=== PATIENT | female | born 1960 | race African-American/Black ===

== ENCOUNTER → 2016-09-15 | Outpatient (CLI) | payer MEDICARE, MEDICAID ==
--- NOTE | 2016-09-15 17:04 | WOMENS IMAGING REPORT ---
EXAM DESCRIPTION: BILAT SCREENING MAMMO W/CAD COMPLETED DATE/TIME: 09/15/2016 3:21 pm REASON FOR STUDY: ROUTINE SCREENING MAMMO, Z12.31 Z12.31 ENCNTR SCREEN MAMMOGRAM FOR MALIGNANT NEOP LASM OF RONAK COMPARISON: Multiple since 2008 TECHNIQUE: Standard craniocaudal and mediolateral oblique views of each breast recorded using Jarvama l acquisition. LIMITATIONS: None. FINDINGS: Findings present which are benign by mammographic criteria. No suspicious masses, calcifi cations or architectural distortion. Read with the assistance of CAD. .[facility] - R2 Cenova Version 1.3 .[facility] - R2 Cenova Version 1.3 .[facility] - R2 Cenova Version 2.4 .[facility] - R2 Cenova Version 2.4 .[facility] - R2 Supply Chain Vice President Version 9.2 Benign mammographic findings may include one or more of the following: Smooth masses, popcorn/rim/co arse calcifications, asymmetries, post-procedure changes, and lesions with long-standing stability. BREAST DENSITY: b. There are scattered areas of fibroglandular density. BIRAD: 2 BENIGN FINDING(S) RECOMMENDATION: ROUTINE SCREENING COMMENT: PATIENT NOTIFIED BY LETTER. The [employer] recommends an annual screening mammogram for women aged 40 years or over. Each patient will receive a reminder prior to the anniversary date of her mammogram. The [employer] (ACR) has developed recommendations for screening MRI of the breast s in certain patient populations, to be used in conjunction with mammography. Breast MRI surveillanc e may be appropriate for women with more than 20% lifetime risk of developing breast cancer as deter mined by genetic testing, significant family history of the disease, or history of mantle radiation f or Hodgkins Disease. ACR Practice Guidelines 2008. TECHNICAL DOCUMENTATION: FINDING NUMBER: (1) ASSESSMENT: (1) JOB ID: [id number] [employer]- All Rights Reserved
== END ==
LOC: WI 14:58
PROVIDERS: ATTEND Obstetrics & Gynecology Gynecology
DX: Z12.31 Encounter for screening mammogram for malignant neoplasm of breast (principal)
CPT/HCPCS: 77067; G0202

== ENCOUNTER → 2016-12-02 | Outpatient (CLI) | payer MEDICARE, MEDICAID ==
[~2016-12-02] MED LIST: ALBUTEROL SULFATE 0.083% NEB 2.5 MG/3 ML AMPUL NEB ONE
--- NOTE | 2016-12-09 13:50 | Pulmonary Function Test ---
Pulmonary Function Test Date of Procedure:: 12/02/16 INDICATION:: Dyspnea Referring Provider: Jewel Bearing Driller: Britney Braden MONTESSORI TEACHER - Report Spirometry: FVC 2.40 L 77% postbronchodilator therapy 2.38 L 76% FEV1 1.90 L 75% postbronchodilator therapy 1.93 L 76% FEV1/FVC % 79 postbronchodilator therapy 81 predicted 83 Lung Volume: Total lung capacity 3.25 L 66% Vital capacity 2.40 L 77% Inspiratory capacity 1.39 FRC N2 1.87 86% ERV 0.48 RV 0.8 5 47% RV/TLC % 26 predicted 36 Diffusion Capactity: DLCO 15.4 60% DLCO/VA 5.07 126% Impression: No evidence for obstructive ventilatory lionel defect there is strong evidence for small airways disease. With limited response to bronchodilator therapy. Mild restrictive ventilatory defect no hyperinflation no air trapping moderate decrease in diffusion capacity.
== END ==
LOC: RT 10:19
PROVIDERS: ATTEND Internal Medicine Pulmonary Disease
DX: J45.909 Unspecified asthma, uncomplicated (principal)
CPT/HCPCS: 94729; 94727; 94060; A9270

== ENCOUNTER → 2017-09-10 | Day surgery (SDC) | payer MEDICARE, MEDICAID ==
--- NOTE | 2017-09-10 15:06 | RADIOLOGY REPORT (SQ) ---
EXAM DESCRIPTION: FLUORO/NEEDLE PLACEMENT; ARTHRO ANKLE INJECTION COMPLETED DATE/TIME: 09/10/2017 2:40 pm REASON FOR STUDY: IMPINGEMENT SYNDROME OF ANKLE M21.42 FLAT FOOT PES PLANUS (ACQUIRED), LEFT FOOT COMPARISON: None. FLUOROSCOPY TIME: 1 minutes. 3 Images saved to PACS. LIMITATIONS: None. PROCEDURE: Procedure, risks, benefits and alternatives explained to patient who then gave written co nsent. The left ankle was marked and a time out was called for correct marking verification. Entry site marked using fluoroscopic guidance. Ankle prepped and draped using sterile technique. Local an esthesia achieved using 1% lidocaine injection. Hypodermic needle introduced into the joint space un rodrigo direct fluoroscopic visualization. Non-ionic contrast instilled to confirm intra-articular posit ion. Additional dilute non-ionic contrast instilled. Needle removed and entry site covered with avani rile bandage. No immediate complications noted. TECHNIQUE: Digital images acquired during fluoroscopy and stored on PACS. Patient immediately take n to the CT suite for additional imaging. INJECTION LOCATION: Left ankle. CONTRAST TYPE AND AMOUNT: 4 mL Isovue saline mixture. IMPRESSION: SUCCESSFUL NEEDLE PLACEMENT AND INJECTION FOR LEFT ANKLE CT ARTHROGRAM. COMMENT: Quality ID [id number]: Final reports for procedures using fluoroscopy that document radiation exp osure indices, or exposure time and number of fluorographic images (if radiation exposure indices are not available) TECHNICAL DOCUMENTATION: JOB ID: [id number] [employer]- All Rights Reserved
--- NOTE | 2017-09-12 14:41 | RADIOLOGY REPORT (SQ) ---
EXAM DESCRIPTION: CT LEFT LOWER EXTREMITY WITH COMPLETED DATE/TIME: 09/10/2017 2:53 pm REASON FOR STUDY: FLATFOOT PESPLANUS LEFT FOOT (M21.42) M21.42 FLAT FOOT PES PLANUS (ACQUIRED), LEF T FOOT COMPARISON: None. TECHNIQUE: Post arthrographic axial imaging performed through the left ankle with reformatted traylor l and sagittal imaging windowed for bone and soft tissues. Images saved to PACS. 3D IMAGING: Were 3D images as MIP, SSD, or volume rendering performed at the work station? Yes All CT scanners at this facility use dose modulation, iterative reconstruction, and/or weight based d osing when appropriate to reduce radiation dose to as low as reasonably achievable (ALARA). [facility]: Dose Right [facility]: CareDose [facility]: Dose Right [facility]: Teradose 4D [facility]: Smart Technologies LIMITATIONS: None. RADIATION DOSE: CT Rad equipment meets quality standard of care and radiation dose reduction techniq ues were employed. CTDIvol: 4.6 mGy. DLP: 113 mGy-cm. mGy. FINDINGS: SOFT TISSUES: No obvious swelling or foreign body. Adequate distention of the ankle joint . No loose bodies in the joint. No gross suggestion of ligament injury or tendon disruption allowin g for suboptimal evaluation of the structures with CT. BONES: Grossly normal bone density. No fracture, suspicious bone lesion or erosions. No large subch ondral cysts or bulky osteophytes. The mortise looks relatively maintained. No talar dome lesion. No coalition evident. Generally maintained hindfoot, midfoot and tarsometatarsal articulations. MINERALIZATION: Normal. OTHER: No other significant finding. IMPRESSION: 1. Relatively unremarkable CT arthrogram of the left ankle. Joint spaces look maintaine d throughout. No significant osteophytes. No erosions present. No evidence of coalition or ankylos is. TECHNICAL DOCUMENTATION: JOB ID: [id number] Quality ID # [id number]: Final reports with documentation of one or more dose reduction techniques (e.g., Au tomated exposure control, adjustment of the mA and/or kV according to patient size, use of iterative reconstruction technique) 2010 [employer]- All Rights Reserved
== END ==
LOC: RAD 13:00
PROVIDERS: ATTEND Orthopaedic Surgery
PROC: BQ0 Imaging, Non-Axial Lower Bones, Plain Radiography (ICD-10-PCS; principal; 2017-09-10)
DX: M21.42 Flat foot [pes planus] (acquired), left foot (principal); M77.52 Other enthesopathy of left foot and ankle
CPT/HCPCS: 27648; 77002

== ENCOUNTER 2017-11-03 11:10 | Emergency (ER) | payer OTHER, MEDICARE, MEDICAID ==
[2017-11-03] MEDS ORDERED: DEXAMETHASONE SOD PHOS INJ 10 MG/1 ML VIAL IM ONE (11:55)
[2017-11-03] MEDS ORDERED: KETOROLAC TROMETHAMINE 60 MG/2 ML SDV IM ONE (11:55)
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
--- NOTE | 2017-11-03 12:41 | RADIOLOGY REPORT (SQ) ---
EXAM DESCRIPTION: L SPINE WHOLE COMPLETED DATE/TIME: 11/03/2017 12:19 pm REASON FOR STUDY: low back pain COMPARISON: May 2011 NUMBER OF VIEWS: Five views including obliques. TECHNIQUE: AP, lateral, oblique, and sacral radiographic images acquired of the lumbar spine. LIMITATIONS: None. FINDINGS: MINERALIZATION: Normal. SEGMENTATION: Normal. No transitional anatomy. ALIGNMENT: There is minimal anterolisthesis of L 4 in relation to L5. VERTEBRAE: Maintained height. No fracture or worrisome bone lesion. DISCS: Preserved height. No significant osteophytes or end plate irregularity. POSTERIOR ELEMENTS: Pedicles and facets are intact. No pars defect or posterior arch defects. HARDWARE: Electrode related to a stimulator device is again identified overlying the left sacrum. PARASPINAL SOFT TISSUES: Normal. PELVIS: Intact as visualized. No fractures or worrisome bone lesions. SI joints intact. OTHER: No other significant finding. IMPRESSION: No significant vertebral compression or disc space reduction is seen. There is minimal anterolisthesis of L 4 in relation L 5. Other findings as noted above TECHNICAL DOCUMENTATION: JOB ID: [id number] [employer]- All Rights Reserved Reading location - IP/workstation name: [email or web address]
[2017-11-03 13:06] VITALS: BP 144/96
== END 2017-11-03 13:06 | disposition home or self-care (01) ==
LOC: ER 11:10
DX: G89.29 Other chronic pain (principal); M54.42 Lumbago with sciatica, left side; Z79.891 Long term (current) use of opiate analgesic; Z79.899 Other long term (current) drug therapy; Z96.89 Presence of other specified functional implants; I10 Essential (primary) hypertension; J45.909 Unspecified asthma, uncomplicated; Z88.2 Allergy status to sulfonamides; Z87.891 Personal history of nicotine dependence; Z85.118 Personal history of other malignant neoplasm of bronchus and lung
CPT/HCPCS: 99283; 96372; 72110; J1885; J1100

== ENCOUNTER → 2018-02-18 | Outpatient (CLI) | payer MEDICARE, MEDICAID ==
--- NOTE | 2018-02-21 09:43 | WOMENS IMAGING REPORT ---
EXAM DESCRIPTION: 3D SCREENING MAMMO BILAT COMPLETED DATE/TIME: 02/18/2018 10:33 am REASON FOR STUDY: SCREENING MAMMO Z12.31 ENCNTR SCREEN MAMMOGRAM FOR MALIGNANT NEOPLASM OF RONAK COMPARISON: Multiple since 2008 TECHNIQUE: Standard craniocaudal and mediolateral oblique views of each breast recorded using digita l acquisition and breast tomosynthesis. LIMITATIONS: None. FINDINGS: No masses, calcifications or architectural distortion. No areas of suspicion. Read with the assistance of CAD. .[facility] - R2 Cenova Version 1.3 .[facility] - R2 Cenova Version 1.3 .[facility] - R2 Cenova Version 2.4 .[facility] [place] [facility] - R2 Cenova Version 2.4 .[facility] - R2 Community Health Nurse Staff Version 9.2 IMPRESSION: NORMAL MAMMOGRAM. BIRADS 1. BREAST DENSITY: b. There are scattered areas of fibroglandular density. BIRAD: 1 NEGATIVE RECOMMENDATION: ROUTINE SCREENING Please continue yearly bilateral screening tomosynthesis in February 2019 COMMENT: The patient has been notified of the results by letter per MQSA requirements. Additional no tification policies are in place for contacting patient with suspicious or incomplete findings. Quality ID #[id number]: The [employer] recommends an annual screening mammogram for women aged 40 years or over. This facility utilizes a reminder system to ensure that all patients receive reminder letters, and/or direct phone calls for appointments. This includes reminders for routine scr eening mammograms, diagnostic mammograms, or other Breast Imaging Interventions when appropriate. Th is patient will be placed in the appropriate reminder system. The [employer] (ACR) has developed recommendations for screening MRI of the breast s in certain patient populations, to be used in conjunction with mammography. Breast MRI surveillanc e may be appropriate for women with more than 20% lifetime risk of developing breast cancer as deter mined by genetic testing, significant family history of the disease, or history of mantle radiation f or Hodgkins Disease. ACR Practice Guidelines 2008. DBT Technology DBT is a type of tomographic mammography. With conventional mammography, overlapping breast tissue ma y make lesions difficult to detect, even with good compression. DBT uses an x-ray tube that rotates a round the breast, taking images at different angles. These images are then combined to create thin sl ices of the breast that the radiologist can view as a 3D reconstruction. The [employer] unit can perform full-field digital mammograms (2D imaging); or DBT (3D imaging); or both, in a combination mode that quickly performs both the mammogram and the tomosynthesis scan while the breast is still compressed. PQRS 6045F: Fluoroscopic imaging is not utilized for breast tomosynthesis. TECHNICAL DOCUMENTATION: FINDING NUMBER: (1) ASSESSMENT: (1) JOB ID: [id number] [employer]- All Rights Reserved Reading location - IP/workstation name: [email or web address]
== END ==
LOC: WI 10:16
PROVIDERS: ATTEND Obstetrics & Gynecology Gynecology
DX: Z12.31 Encounter for screening mammogram for malignant neoplasm of breast (principal)
CPT/HCPCS: 77063; 77067

== ENCOUNTER 2018-05-30 10:18 | Emergency (ER) | payer MEDICARE, MEDICAID ==
[2018-05-30] MEDS ORDERED: ASPIRIN 81 MG TABLET, CHEWABLE PO ONE (10:44)
--- NOTE | 2018-05-30 10:48 | ER Document Report ---
ED Cardiac - General Chief Complaint: Chest Pain Stated Complaint: CHEST PAIN/JAW PAIN Time Seen by Provider: 05/30/18 10:38 Mode of Arrival: Ambulatory Information source: Patient Notes: 57-year-old female presents emergency department with complaints of chest pain. Patient states that at 8 PM last night when she was changing her clothes she began having pain located in the left chest radiating into the center of the chest. She describes the pain as a sharp, dull, pressure sensation. She denies any exacerbating factors. Patient states that initially she took a muscle relaxer and this helped a little with her symptoms. Patient states that the pain has been intermittent since last night. She has not taken any aspirin. Patient denies a history of coronary artery disease but does have hypertension, hyperlipidemia, family history of coronary artery disease. Patient denies history of smoking. I have greeted and performed a rapid initial assessment of this patient. A comprehensive ED assessment and evaluation of the patient, analysis of test results and completion of the medical decision making process will be conducted by additional ED providers. PHYSICAL EXAMINATION: GENERAL: Well-appearing, well-nourished and in no acute distress. HEAD: Atraumatic, normocephalic. EYES: Pupils equal round extraocular movements intact, conjunctiva are normal. ENT: Nares patent NECK: Normal range of motion LUNGS: No respiratory distress Musculoskeletal: Normal range of motion NEUROLOGICAL: Normal speech, normal gait. PSYCH: Normal mood, normal affect. SKIN: Warm, Dry, normal turgor, no rashes or lesions noted. TRAVEL OUTSIDE OF THE [place] IN LAST 30 DAYS: No - Related Data Allergies/Adverse Reactions: Sulfa (Sulfonamide Antibiotics) Allergy (Verified 05/30/18 10:19) Past Medical History - Social History Smoking Status: Former Smoker Family History: CAD - Past Medical History Cardiac Medical History: Reports: Hx DVT, Hx Hypertension Denies: Hx Heart Attack Pulmonary Medical History: Reports: Hx Asthma Denies: Hx Bronchitis, Hx COPD, Hx Pneumonia Neurological Medical History: Denies: Hx Seizures Renal/ Medical History: Denies: Hx Peritoneal Dialysis Malignancy Medical History: Reports: Hx Lung Cancer GI Medical History: Reports: Hx Gastroesophageal Reflux Disease, Hx Hiatal Hernia Musculoskeletal Medical History: Reports Hx Arthritis, Reports Hx Multiple Sclerosis, Reports Hx Musculoskeletal Deformity Past Surgical History: Reports: Hx Section, Hx Cholecystectomy, Hx Orthopedic Surgery - L wrist, Other - Left upper lobe removed lung, lung cancer. Denies: Hx Hysterectomy - Immunizations Hx Diphtheria, Pertussis, Tetanus Vaccination: Yes Physical Exam - Vital signs Vitals: Temp Pulse Resp BP Pulse Ox 98.2 F 63 18 160/95 H 100 05/30/18 10:05/30/18 10:29 05/30/18 10:29 05/30/18 10:29 05/30/18 10:29 Course - Vital Signs Vital signs: Temp Pulse Resp BP Pulse Ox 98.2 F 63 18 160/95 H 100 05/30/18 10:29 05/30/18 10:29 05/30/18 10:29 05/30/18 10:29 05/30/18 10:29 Discharge - Discharge Referrals: PAM DOWNEY MD [Primary Care Provider] - Follow up as needed
[2018-05-30 11:16] LABS: ABSOLUTE EOSINOPHILS # (AUTO) 0.2 10^3/uL (0.0-0.6); ABSOLUTE LYMPHOCYTES (AUTO) 2.2 10^3/uL (0.5-4.7); ABSOLUTE MONOCYTES (AUTO) 0.6 10^3/uL (0.1-1.4); ABSOLUTE NEUT (AUTO) 4.3 10^3/uL (1.7-8.2); BASOPHILS % (AUTO) 0.2 % (0-2); EOSINOPHILS % (AUTO) 2.1 % (0-6); HEMATOCRIT 40.5 % (36.0-47.0); HEMOGLOBIN 13.4 g/dL (12.0-15.5); LYMPHOCYTES % (AUTO) 30.6 % (13-45); MEAN CORPUSCULAR HEMOGLOBIN 28.2 pg (27.0-33.4); MEAN CORPUSCULAR HGB CONC 33.1 g/dL (32.0-36.0); MEAN CORPUSCULAR VOLUME 85 fl (80-97); MONOCYTES % (AUTO) 8.2 % (3-13); PLATELET COUNT 278 10^3/uL (150-450); RED BLOOD COUNT 4.75 10^6/uL (3.72-5.28); RED CELL DISTRIBUTION WIDTH 14.6 % (11.5-14.0); SEGMENTED NEUTROPHILS % (AUTO) 58.9 % (42-78); TOTAL CELLS COUNTED % (AUTO) 100 %; WHITE BLOOD COUNT 7.3 10^3/uL (4.0-10.5)
--- NOTE | 2018-05-30 11:21 | ER Document Report ---
ED Cardiac - General Chief Complaint: Chest Pain Stated Complaint: CHEST PAIN/JAW PAIN Time Seen by Provider: 05/30/18 10:38 Mode of Arrival: Ambulatory Notes: 57-year-old female presents to the ER complaining of chest discomfort. The patient describes the chest discomfort as heaviness rating to her left jaw and left arm. She has had this from time to time and has seen Dr. Roberts her brim edge trimmer in the past. A stress test a year ago. She described this as heaviness with radiation she rates as moderate nothing really made it better or worse. She denies any fever chills cough or sore throat positive shortness of breath denies nausea or diaphoresis. Denies any calf pain or leg swelling denies abdominal pain. Denies nausea vomiting diarrhea. TRAVEL OUTSIDE OF THE [place] IN LAST 30 DAYS: No - Related Data Allergies/Adverse Reactions: Sulfa (Sulfonamide Antibiotics) Allergy (Verified 05/30/18 10:19) Past Medical History - General Information source: Patient - Social History Smoking Status: Former Smoker Chew tobacco use (# tins/day): No Frequency of alcohol use: None Drug Abuse: None Family History: CAD Patient has suicidal ideation: No Patient has homicidal ideation: No - Past Medical History Cardiac Medical History: Reports: Hx DVT, Hx Hypercholesterolemia, Hx Hypertension Denies: Hx Heart Attack Pulmonary Medical History: Reports: Hx Asthma Denies: Hx Bronchitis, Hx COPD, Hx Pneumonia Neurological Medical History: Denies: Hx Seizures Renal/ Medical History: Denies: Hx Peritoneal Dialysis Malignancy Medical History: Reports: Hx Lung Cancer GI Medical History: Reports: Hx Gastroesophageal Reflux Disease, Hx Hiatal Hernia Musculoskeletal Medical History: Reports Hx Arthritis, Reports Hx Multiple Sclerosis, Reports Hx Musculoskeletal Deformity Past Surgical History: Reports: Hx Section, Hx Cholecystectomy, Hx Orthopedic Surgery - L wrist, Other - Left upper lobe removed lung, lung cancer. Denies: Hx Hysterectomy - Immunizations Hx Diphtheria, Pertussis, Tetanus Vaccination: Yes Review of Systems - Review of Systems Cardiovascular: Chest pain, Dyspnea. denies: Syncope, Dizziness Respiratory: denies: Cough, Hurts to breathe Genitourinary: denies: Dysuria Neurological/Psychological: denies: Headaches -: Yes All other systems reviewed and negative Physical Exam - Vital signs Vitals: Temp Pulse Resp BP Pulse Ox 98.2 F 63 18 160/95 H 100 05/30/18 10:29 10/15/18 10:29 05/30/18 10:29 05/30/18 10:29 05/30/18 10:29 - Notes Notes: GENERAL_APPEARANCE: well_nourished, alert, cooperative VITALS: reviewed, see vital signs table. HEAD: no_swelling\tenderness on the head. EYES: PERRL, EOMI, conjunctiva_clear. NOSE: no_nasal_discharge. MOUTH: (-)decreased moisture. THROAT: no_tonsilar_inflammation, no_airway_obstruction. no_lymphadenopathy NECK: supple, no_neck_tenderness, (-)thyromegaly. BACK: no_back_tenderness. CHEST_WALL: no_chest_tenderness. LUNGS: no_wheezing, no_rales, no_rhonchi, (-)accessory muscle use, good air exchange bilateral. HEART: normal_rate, normal_rhythm, normal_S1, normal_S2, (-)S3, (-)S4, no_ murmur, no_rub. ABDOMEN: normal_BS, soft, no_abd_tenderness, (-)guarding, (-)rebound, no_ organomegaly, no_abd_masses. EXTREMITIES: good pulses in all_extremities, no_swelling\tenderness in the extremities, no_edema. SKIN: warm, dry, good_color, no_rash. MENTAL_STATUS: speech_clear, oriented_X_3, normal_affect, responds_ appropriately to questions. NEURO: Neg Motor or Sensory Deficits on exam, CN 2-12 intact, DTR 2+ symmetric x 4, No cerbellar signs Course - Re-evaluation Re-evalutation: 05/30/18 11:20 57-year-old female presents to the ER with chest discomfort. Start a cardiac workup and contact her brim edge trimmer. 05/30/18 14:14 EKG and enzymes so far been negative. I spoke with her brim edge trimmer Dr. Roberts. We will get a second troponin at the 4-hour kellie if negative the patient can follow-up with him tomorrow in the office. 05/30/18 15:47 Repeat troponin was also negative at 4 hours. There is no EKG changes. I spoke with the patient and I explained the limitations of our testing however we are reassured by her findings here today she is comfortable with seeing Dr. Roberts tomorrow. She has felt much better after the GI cocktail. I spoke with her about an acids. Again if her discomfort gets worse or persists and she feels any concern whatsoever she should return to the ER and allow us to reevaluate her otherwise follow-up with Dr. Roberts tomorrow - Vital Signs Vital signs: Temp Pulse Resp BP Pulse Ox 98.2 F 63 18 160/95 H 100 05/30/18 10:29 05/30/18 10:29 05/30/18 10:29 05/30/18 10:29 05/30/18 10:29 - Laboratory Result Diagrams: 05/30/18 11:00 05/30/18 11:00 Laboratory results interpreted by me: 05/30/18 11:00 RDW 14.6 H - Diagnostic Test Radiology reviewed: Reports reviewed Radiology results interpreted by me: 05/30/18 15:47 Chest X-Ray 05/30/18 10:45 IMPRESSION: 1. Post surgical changes left upper lung. No acute findings. - EKG Interpretation by Me EKG shows normal: Sinus rhythm Rate: Normal - 59 Rhythm: NSR When compared to previous EKG there are: No significant change Discharge - Discharge Clinical Impression: Chest discomfort Condition: Good Disposition: HOME, SELF-CARE Instructions: Chest Pain of Unclear Cause ([facility]) Additional Instructions: Please see Dr. Roberts tomorrow --- as we have discussed no test is 100%. If you feel as if you are getting worse or things are not improving or not having a good direction tonight return to the ER immediately otherwise follow-up with Dr. Roberts Referrals: PAM DOWNEY MD [EMERITUS] - Follow up as needed
--- NOTE | 2018-05-30 11:25 | RADIOLOGY REPORT (SQ) ---
EXAM DESCRIPTION: CHEST SINGLE VIEW COMPLETED DATE/TIME: 05/30/2018 11:10 am REASON FOR STUDY: chest pain COMPARISON: 04/06/2016 EXAM PARAMETERS: NUMBER OF VIEWS: One view. TECHNIQUE: Single frontal radiographic view of the chest acquired. RADIATION DOSE: NA LIMITATIONS: None. FINDINGS: LUNGS AND PLEURA: Post surgical changes left upper lung. No acute pulmonary consolidatio n. No pneumothorax or pleural effusion. MEDIASTINUM AND HILAR STRUCTURES: No masses. Contour normal. HEART AND VASCULAR STRUCTURES: Heart normal in size. Normal vasculature. BONES: No acute findings. HARDWARE: None in the chest. OTHER: No other significant finding. IMPRESSION: 1. Post surgical changes left upper lung. No acute findings. TECHNICAL DOCUMENTATION: JOB ID: [id number] [employer]- All Rights Reserved Reading location - IP/workstation name: [email or web address]
[2018-05-30 11:43] LABS: ALANINE AMINOTRANSFERASE 19 U/L (9-52); ALBUMIN 4.1 g/dL (3.5-5.0); ALKALINE PHOSPHATASE 100 U/L (38-126); ANION GAP 10 (5-19); ASPARTATE AMINO TRANSFERASE 27 U/L (14-36); BILIRUBIN,DIRECT 0.3 mg/dL (0.0-0.4); BILIRUBIN,TOTAL 0.8 mg/dL (0.2-1.3); BLOOD UREA NITROGEN 13 mg/dL (7-20); CALCIUM 9.5 mg/dL (8.4-10.2); CARBON DIOXIDE 28 mmol/L (22-30); CHLORIDE 104 mmol/L (98-107); CREATINE KINASE 66 U/L (30-135); GLUCOSE 98 mg/dL (75-110); POTASSIUM 4.2 mmol/L (3.6-5.0); SODIUM 141.5 mmol/L (137-145); TOTAL PROTEIN 7.5 g/dL (6.3-8.2)
[2018-05-30 11:55] LABS: CREATINE KINASE MB 0.98 ng/mL (<4.55); TROPONIN I < 0.012 ng/mL
--- NOTE | 2018-05-30 13:34 | EKG REPORT ---
SEVERITY:- BORDERLINE ECG - SINUS RHYTHM PROBABLE LEFT ATRIAL ABNORMALITY BORDERLINE T WAVE ABNORMALITIES : Confirmed by: Dewey Quintero MD 30-May-2018 13:34:04
[2018-05-30] MEDS ORDERED: MAG HYDROX/AL HYDROX/SIMETH SUSP 30 ML UDCUP PO ONE (14:12)
[2018-05-30] MEDS ORDERED: METOCLOPRAMIDE HCL ORAL SOLN 10 MG/10 ML UDCUP PO ONE (14:12)
[2018-05-30] MEDS ORDERED: LIDOCAINE 2% VISCOUS SOLN 20 ML UDCUP PO ONE (14:12)
[2018-05-30 16:27] VITALS: BP 136/82
== END 2018-05-30 16:27 | disposition home or self-care (01) ==
LOC: ER 10:18
DX: R07.9 Chest pain, unspecified (principal); R68.84 Jaw pain; E78.00 Pure hypercholesterolemia, unspecified; I10 Essential (primary) hypertension; Z88.2 Allergy status to sulfonamides; Z87.891 Personal history of nicotine dependence; Z86.718 Personal history of other venous thrombosis and embolism; Z90.49 Acquired absence of other specified parts of digestive tract
CPT/HCPCS: 93005; 99285; 36415; 82553; 82550; 85025; 80053; 84484; 71045; 93010; A9270 ×2; J3490

== ENCOUNTER 2018-12-15 05:05 | Emergency (ER) | payer MEDICARE, MEDICAID ==
[2018-12-15 05:17] VITALS: BP 168/92
[2018-12-15] MEDS ORDERED: DEXAMETHASONE SOD PHOS INJ 10 MG/1 ML VIAL IM ONE (06:22)
[2018-12-15] MEDS ORDERED: LIDOCAINE 5% (700 MG) TRANSDERMAL ADH..PATCH TP ONE (06:23)
--- NOTE | 2018-12-15 06:24 | ER Document Report ---
HPI - HPI Time Seen by Provider: 12/15/18 05:44 Pain Level: 5 Context: Patient is a 58-year-old obese patient who presents the emergency department with a chief complaint of lower back and left hip pain. She states that her symptoms started 4 to 5 days ago. She states that she always has lower back pain, but now has had new hip pain. States that her low back pain feels like it normally does. She is on Neurontin, oxycodone, and baclofen for her back pain. Her last dose of oxycodone and baclofen was at midnight tonight. She also is on Nexium, Lasix, and Coreg. She denies any numbness, tingling, IV drug abuse, loss of bladder or bladder function, or any other symptoms. Denies sciatica symptoms. She denies any dysuria. - CONSTITUTIONAL Constitutional: DENIES: Fever - EENT EENT: DENIES: Sore Throat, Ear Pain - NEURO Neurology: DENIES: Headache - CARDIOVASCULAR Cardiovascular: DENIES: Chest pain - RESPIRATORY Respiratory: DENIES: Trouble Breathing, Coughing - GASTROINTESTINAL Gastrointestinal: DENIES: Abdominal Pain - URINARY Urinary: DENIES: Dysuria - REPRODUCTIVE Reproductive: DENIES: : - MUSCULOSKELETAL Musculoskeletal: REPORTS: Extremity pain - Left hip, Back Pain - DERM Skin Color: Normal Skin Problems: None Past Medical History - Social History Smoking Status: Never Smoker Chew tobacco use (# tins/day): No Frequency of alcohol use: None Drug Abuse: None Family History: CAD Patient has suicidal ideation: No Patient has homicidal ideation: No - Past Medical History Cardiac Medical History: Reports: Hx DVT, Hx Hypercholesterolemia, Hx Hypertension Denies: Hx Heart Attack Pulmonary Medical History: Reports: Hx Asthma Denies: Hx Bronchitis, Hx COPD, Hx Pneumonia Neurological Medical History: Denies: Hx Seizures Renal/ Medical History: Denies: Hx Peritoneal Dialysis Malignancy Medical History: Reports: Hx Lung Cancer GI Medical History: Reports: Hx Gastroesophageal Reflux Disease, Hx Hiatal Hernia Musculoskeletal Medical History: Reports Hx Arthritis, Reports Hx Multiple Sclerosis, Reports Hx Musculoskeletal Deformity Past Surgical History: Reports: Hx Section, Hx Cholecystectomy, Hx Orthopedic Surgery - L wrist, Other - Left upper lobe removed lung, lung cancer. Denies: Hx Hysterectomy - Immunizations Hx Diphtheria, Pertussis, Tetanus Vaccination: Yes Vertical Provider Document - CONSTITUTIONAL Agree With Documented VS: Yes Exam Limitations: No Limitations General Appearance: No Apparent Distress - INFECTION CONTROL TRAVEL OUTSIDE OF THE [place] IN LAST 30 DAYS: No - HEENT HEENT: Atraumatic, Normocephalic - NECK Neck: Normal Inspection - RESPIRATORY Respiratory: Breath Sounds Normal, No Respiratory Distress - CARDIOVASCULAR Cardiovascular: Regular Rate, Regular Rhythm Pulses: Normal: Radial, Posterior tibial, Dorsalis pedis - GI/ABDOMEN Gastrointestinal: Abdomen Soft - BACK Back: Normal Inspection. negative: CVA Tenderness-Right, CVA Tenderness-Left - MUSCULOSKELETAL/EXTREMETIES Musculoskeletal/Extremeties: FROM - NEURO Level of Consciousness: Awake, Alert, Appropriate Motor/Sensory: No Motor Deficit, No Sensory Deficit Deep Tendon Reflexes: 2+ - DERM Integumentary: Warm, Dry, No Rash Course - Re-evaluation Re-evalutation: 12/15/18 06:24 Differential diagnosis for back pain includes muscle spasm, muscle strain, slipped disc cauda equina syndrome, vertebral fracture, vertebral tumor, epidural abscess, pyelonephritis, or AAA. Based on history and exam, the most likely etiology of the patient's back pain is chronic. Emergent MRI is not indicated at this time because the patient does not have new weakness, or cauda equina syndrome. Patient does not have bladder or bowel dysfunction. Patient does not have history of IV drug use, therefore, I do not suspect an epidural abscess. Patient does not have recent weight loss or night sweats. She does have a past medical history of cancer, but it was lung cancer and she is in remission. She will be given a dose of Decadron here in the emergency department. Since the patient is currently on oxycodone, baclofen, and Neurontin, I am hesitant to give her any narcotic medications, as this may be detrimental to her health. She will also receive lidocaine patches. She is in agreement with this plan. Verbal discharge instructions were given to the patient. They verbalized understanding. They are stable for discharge. - Vital Signs Vital signs: Temp Pulse Resp BP Pulse Ox 97.8 F 69 20 168/92 H 99 12/15/18 05:10 12/15/18 05:10 12/15/18 05:10 12/15/18 05:10 12/15/18 05:10 Discharge - Discharge Clinical Impression: Left hip pain Back pain Qualifiers: Back pain location: low back pain Chronicity: chronic Back pain laterality: bilateral Sciatica presence: without sciatica Qualified Code(s): M54.5 - Low back pain Condition: Stable Disposition: HOME, SELF-CARE Additional Instructions: You were seen today in the emergency department for back pain and left hip pain. You received a steroid shot here in the emergency department. You have also been prescribed lidocaine patches. Use the patches as directed. If you cannot buy the patches, you may also buy [id number] Aspercreme with lidocaine and apply to the area per box instructions. Please follow-up with your primary care provider regards to this visit. If you develop a fever greater than 100.4 F, lose bowel or bladder function, are unable to walk, or have any symptoms that are worrisome to you, please return to the emergency department. Prescriptions: Lidocaine [Lidoderm 5% (700 mg) Transdermal Patch] 1 patch TP DAILY PRN #20 adh..patch PRN Reason: Referrals: RICARDO MONAHAN PA-C [Primary Care Provider] - Follow up in 3-5 days
== END 2018-12-15 06:41 | disposition home or self-care (01) ==
LOC: ER 05:05
DX: M25.552 Pain in left hip (principal); M54.5 Low back pain; Z79.891 Long term (current) use of opiate analgesic; Z79.899 Other long term (current) drug therapy; K21.9 Gastro-esophageal reflux disease without esophagitis; I10 Essential (primary) hypertension; J45.909 Unspecified asthma, uncomplicated; Z85.118 Personal history of other malignant neoplasm of bronchus and lung
CPT/HCPCS: 99283; 96372; J1100

== ENCOUNTER 2020-03-11 15:49 | Emergency (ER) | payer MEDICARE, MEDICAID ==
--- NOTE | 2020-03-11 17:14 | ER Document Report ---
ED Medical Screen (RME) - General Stated Complaint: POSSIBLE BLOOD CLOT IN LEG Time Seen by Provider: 03/11/20 17:09 Primary Care Provider: RICARDO MONAHAN PA-C [Primary Care Provider] - Follow up as needed Notes: Patient is a 59-year-old female who presents to the emergency department with a chief complaint of left lower extremity swelling and pain. Patient states that her symptoms started a week and a half ago. Patient states that she saw her primary care provider and was referred to the emergency department to evaluate for a blood clot. Patient denies any smoking. She is not on any antibiotics. Denies control use. Patient states that a week and a half ago she ended up having a slight fever. Denies any current fever. Exam: Edema and erythema noted to the left lower extremity. I have greeted and performed a rapid initial assessment of this patient. A comprehensive ED assessment and evaluation of the patient, analysis of test results and completion of medical decision making process will be conducted by an additional ED providers. TRAVEL OUTSIDE OF THE [place] IN LAST 30 DAYS: No - Related Data Allergies/Adverse Reactions: Sulfa (Sulfonamide Antibiotics) Allergy (Verified 03/11/20 17:09) Past Medical History - Past Medical History Cardiac Medical History: Reports: Hx DVT, Hx Hypercholesterolemia, Hx Hypertension Denies: Hx Heart Attack Pulmonary Medical History: Reports: Hx Asthma Denies: Hx Bronchitis, Hx COPD, Hx Pneumonia Neurological Medical History: Denies: Hx Seizures Renal/ Medical History: Denies: Hx Peritoneal Dialysis Malignancy Medical History: Reports: Hx Lung Cancer GI Medical History: Reports: Hx Gastroesophageal Reflux Disease, Hx Hiatal Hernia Musculoskeltal Medical History: Reports Hx Arthritis, Reports Hx Multiple Sclerosis, Reports Hx Musculoskeletal Deformity Past Surgical History: Reports: Hx Section, Hx Cholecystectomy, Hx Orthopedic Surgery - L wrist, Other - Left upper lobe removed lung, lung cancer. Denies: Hx Hysterectomy - Immunizations Hx Diphtheria, Pertussis, Tetanus Vaccination: Yes Physical Exam - Vital signs Vitals: Temp Pulse Resp BP Pulse Ox 98.5 F 73 18 152/93 H 98 03/11/20 15:54 03/11/20 15:54 03/11/20 15:54 03/11/20 15:54 03/11/20 15:54 Course - Vital Signs Vital signs: Temp Pulse Resp BP Pulse Ox 98.5 F 73 18 152/93 H 98 03/11/20 15:54 03/11/20 15:54 03/11/20 15:54 03/11/20 15:54 03/11/20 15:54 Doctor's Discharge - Discharge Referrals: RICARDO MONAHAN PA-C [Primary Care Provider] - Follow up as needed
--- NOTE | 2020-03-11 19:28 | RADIOLOGY REPORT (SQ) ---
EXAM DESCRIPTION: VENOUS UNILATERAL LOWER IMAGES COMPLETED DATE/TIME: 03/11/2020 7:20 pm REASON FOR STUDY: LLE pain/swelling COMPARISON: None. TECHNIQUE: Dynamic and static metcalf scale and color images acquired of the left leg venous system. Se lected spectral images acquired with additional compression and augmentation maneuvers. The contralat eral common femoral vein and saphenofemoral junction were also imaged. Images stored on PACS. LIMITATIONS: None. FINDINGS: COMMON FEMORAL: Normal phasicity, compression and augmentation. No visualized echogenic ma terial on metcalf scale. No defects on color images. FEMORAL: Normal compression and augmentation. No visualized echogenic material on metcalf scale. No defe cts on color images. POPLITEAL: Normal compression, augmentation. No visualized echogenic material on metcalf scale. No defec ts on color images. CALF VESSELS: Normal compression, augmentation. No visualized echogenic material on metcalf scale. No de fects on color images. GSV and SSV: Normal compression, augmentation. No visualized echogenic material on metcalf scale. No def ects on color images. ANY DEEP VENOUS INSUFFICIENCY: Not evaluated. ANY EVIDENCE OF POPLITEAL CYST: No. OTHER: No other significant finding. CONTRALATERAL COMMON FEMORAL VEIN: Normal phasicity, compression and augmentation. No visualized echogenic material on metcalf scale. No de fects on color images. IMPRESSION: 1. NO EVIDENCE OF DVT OR SVT IN THE LEFT LEG. COMMENT: 1. The results of this examination were given to the charge nurse on 03/11/2020 and 19:10 h ours. TECHNICAL DOCUMENTATION: JOB ID: [id number] [employer]- All Rights Reserved Reading location - IP/workstation name: [email or web address]
[2020-03-11 20:05] LABS: ABSOLUTE BASOPHILS # (AUTO) 0.1 10^3/uL (0.0-0.2); ABSOLUTE EOSINOPHILS # (AUTO) 0.2 10^3/uL (0.0-0.6); ABSOLUTE LYMPHOCYTES (AUTO) 2.9 10^3/uL (0.5-4.7); ABSOLUTE MONOCYTES (AUTO) 0.5 10^3/uL (0.1-1.4); ABSOLUTE NEUT (AUTO) 6.9 10^3/uL (1.7-8.2); BASOPHILS % (AUTO) 0.8 % (0-2); EOSINOPHILS % (AUTO) 2.1 % (0-6); HEMATOCRIT 43.2 % (36.0-47.0); HEMOGLOBIN 14.2 g/dL (12.0-15.5); LYMPHOCYTES % (AUTO) 27.4 % (13-45); MEAN CORPUSCULAR HEMOGLOBIN 28.3 pg (27.0-33.4); MEAN CORPUSCULAR HGB CONC 32.9 g/dL (32.0-36.0); MEAN CORPUSCULAR VOLUME 86 fl (80-97); MONOCYTES % (AUTO) 5.1 % (3-13); PLATELET COUNT 385 10^3/uL (150-450); RED BLOOD COUNT 5.02 10^6/uL (3.72-5.28); RED CELL DISTRIBUTION WIDTH 13.7 % (11.5-14.0); SEGMENTED NEUTROPHILS % (AUTO) 64.6 % (42-78); TOTAL CELLS COUNTED % (AUTO) 100 %; WHITE BLOOD COUNT 10.7 10^3/uL (4.0-10.5)
[2020-03-11 20:24] LABS: BLOOD UREA NITROGEN 14 mg/dL (7-20); CALCIUM 9.9 mg/dL (8.4-10.2); GLUCOSE 94 mg/dL (75-110); POTASSIUM 4.2 mmol/L (3.6-5.0)
[2020-03-11 20:30] LABS: ANION GAP 4 (5-19); CARBON DIOXIDE 35 mmol/L (22-30); CHLORIDE 97 mmol/L (98-107)
[2020-03-11 23:12] VITALS: BP 165/94
[2020-03-11] MEDS ORDERED: DOXYCYCLINE HYCLATE 100 MG TABLET PO ONE (23:26)
[2020-03-11] MEDS ORDERED: CEPHALEXIN 500 MG CAPSULE PO ONE (23:26)
--- NOTE | 2020-03-11 23:33 | ER Document Report ---
ED General - General Chief Complaint: Leg Pain Stated Complaint: POSSIBLE BLOOD CLOT IN LEG Time Seen by Provider: 03/11/20 17:09 Primary Care Provider: RICARDO MONAHAN PA-C [Primary Care Provider] - Follow up as needed TRAVEL OUTSIDE OF THE [place] IN LAST 30 DAYS: No - HPI Notes: 59-year-old female history of high blood pressure presents with approximately 1 week of gradual onset gradually worsening and spreading left lower extremity pain redness warmth and swelling. Patient says that she was seen in ED approximately 1 week ago for bronchitis symptoms and was placed on amoxicillin and while she was on amoxicillin symptoms were worsening. Patient thinks that her skin was itching before symptoms for started. Patient denies any fever, vomiting, dizziness, syncope, trauma, change in gait, diabetes history, immune compromise history, other recent antibiotics, chest pain, shortness of breath, cough. Patient says her respiratory symptoms have resolved and she feels other [place] well except for the leg pain and swelling. Records a history of DVT but sounds like superficial hemangioma that was treated by excision. - Related Data Allergies/Adverse Reactions: Sulfa (Sulfonamide Antibiotics) Allergy (Verified 03/11/20 17:09) Home Medications: gabapentin. lasix. nexium. melaxicam. bp Past Medical History - General Information source: Patient - Social History Smoking Status: Former Smoker Chew tobacco use (# tins/day): No Frequency of alcohol use: None Drug Abuse: None Family History: CAD Patient has homicidal ideation: No - Past Medical History Cardiac Medical History: Reports: Hx Hypercholesterolemia, Hx Hypertension Denies: Hx Heart Attack Pulmonary Medical History: Reports: Hx Asthma Denies: Hx Bronchitis, Hx COPD, Hx Pneumonia Neurological Medical History: Denies: Hx Seizures Renal/ Medical History: Denies: Hx Peritoneal Dialysis Malignancy Medical History: Reports: Hx Lung Cancer GI Medical History: Reports: Hx Gastroesophageal Reflux Disease, Hx Hiatal Hernia Musculoskeletal Medical History: Reports Hx Arthritis, Reports Hx Multiple Sclerosis, Reports Hx Musculoskeletal Deformity Past Surgical History: Reports: Hx Section, Hx Cholecystectomy, Hx Orthopedic Surgery - L wrist, Other - Left upper lobe removed lung, lung cancer. Denies: Hx Hysterectomy - Immunizations Hx Diphtheria, Pertussis, Tetanus Vaccination: Yes Review of Systems - Review of Systems Notes: REVIEW OF SYSTEMS: CONSTITUTIONAL : Denies fever, chills, or sweats. EENT: Denies recent cold/sinus symptoms, denies throat pain CARDIOVASCULAR: Denies chest pain, [place] RESPIRATORY: Denies cough, denies shortness of breath. GASTROINTESTINAL: Denies abdominal pain, nausea/vomiting. GENITOURINARY: Denies difficulty urinating, painful urination. FEMALE GENITOURINARY: Denies abnormal vaginal bleeding, vaginal discharge. MUSCULOSKELETAL: Denies neck pain, back pain. SKIN: Denies rash or skin lesions. HEMATOLOGIC : Denies easy bruising or bleeding. LYMPHATIC: Denies swollen, enlarged glands. NEUROLOGICAL: Denies headache, denies change in gait. PSYCHIATRIC: Denies anxiety or stress or depression. Physical Exam - Vital signs Vitals: Temp Pulse Resp BP Pulse Ox 98.5 F 73 18 152/93 H 98 03/11/20 15:54 03/11/20 15:54 03/11/20 15:54 03/11/20 15:54 03/11/20 15:54 - Notes Notes: PHYSICAL EXAMINATION: GENERAL: Well-appearing, well-nourished and in no acute distress. HEAD: Atraumatic, normocephalic. EYES: Pupils equal round and appropriate constriction, sclera anicteric, conjunctiva are normal. ENT: nares patent, moist mucous membranes. NECK: Normal range of motion, supple without lymphadenopathy LUNGS: Breath sounds clear to auscultation bilaterally and equal. No wheezes rales or rhonchi. Normal respiratory rate and effort HEART: Regular rate and rhythm without murmurs ABDOMEN: Soft, nontender, no guarding, no masses, no CVAT EXTREMITIES: Normal range of motion, DP pulses 2+ bilaterally, distal cap refill less than 2 seconds, significant left lower extremity edema involving dorsum of foot and distal third of left lower leg with redness and abnormal warmth without any focal skin lesions or discharge, full range of motion at all lower extremity articulations including left ankle and the left toes, no point tenderness NEUROLOGICAL: Awake, alert, conversing appropriately, moves all extremities spontaneously. PSYCH: Normal mood, normal affect. SKIN: Warm, Dry, normal turgor Course - Re-evaluation Re-evalutation: 03/11/20 23:32 Patient with gradual onset over 1 week of symptoms consistent with left lower extremity cellulitis. Patient has no diabetes or immune compromise history and no systemic symptoms and is otherwise completely well, normal exam otherwise, and previous respiratory symptoms recently treated for have since resolved. Amoxicillin is sufficiently covers strep and will also give coverage for community-acquired MRSA given lack of improvement on amoxicillin. Patient given extensive return to ED precautions and instructed to follow-up for wound check with her primary doctor within 3 days. Patient and daughter demonstrated understanding of plan and denied having any other questions or concerns at time of discharge. Will give first dose of antibiotics in ED and send rest to pharmacy. We will kellie cellulitis. Left lower extremity ultrasound to rule out DVT was performed after triage which was negative. - Vital Signs Vital signs: Temp Pulse Resp BP Pulse Ox 98.2 F 67 16 165/94 H 100 03/11/20 23:11 03/11/20 23:11 03/11/20 23:11 03/11/20 23:11 03/11/20 23:11 - Laboratory Result Diagrams: 03/11/20 19:54 03/11/20 19:54 Laboratory results interpreted by me: 03/11/20 03/11/20 19:54 19:54 WBC 10.7 H Sodium 136.3 L Chloride 97 L Carbon Dioxide 35 H Anion Gap 4 L Discharge - Discharge Clinical Impression: Cellulitis Qualifiers: Site of cellulitis: extremity Site of cellulitis of extremity: lower extremity Laterality: left Qualified Code(s): L03.116 - Cellulitis of left lower limb Disposition: HOME, SELF-CARE Additional Instructions: Cellulitis You have an infection of your skin and underlying soft tissues called cellulitis. This is due to bacteria, which can enter through any break in the skin, or even through an irritated hair follicle. Untreated, cellulitis will usually worsen. Antibiotics are required. Usually, warm packs or warm soaks, and elevation of the infected area are recommended. You should start getting better within 24 to 36 hours. Most infections respond quickly to the right medication. Follow-up care is important, however, to check for abscess (boil) formation, unsuspected foreign body, or resistant infection. If you develop fever, chills, or if the area of infection is becoming rapidly more swollen or painful, call the doctor at once. Follow-up with your primary doctor within 3 days to check your cellulitis progress. Take all antibiotics as prescribed. If you should feel worse at any time including spreading pain, worsening pain, fever, vomiting, confusion, dizziness, fainting, or any other worsening or alarming symptoms return to the emergency department immediately. Prescriptions: Doxycycline Monohydrate 100 mg PO BID #14 capsule Cephalexin Monohydrate [Keflex 500 mg Capsule] 500 mg PO Q6H 7 Days #28 capsule Referrals: RICARDO MONAHAN PA-C [Primary Care Provider] - Follow up as needed
== END 2020-03-11 23:45 | disposition home or self-care (01) ==
LOC: ER 15:49
DX: L03.116 Cellulitis of left lower limb (principal); I10 Essential (primary) hypertension; K21.9 Gastro-esophageal reflux disease without esophagitis; J45.909 Unspecified asthma, uncomplicated; M19.90 Unspecified osteoarthritis, unspecified site; Z79.1 Long term (current) use of non-steroidal anti-inflammatories (NSAID); Z79.899 Other long term (current) drug therapy; Z87.891 Personal history of nicotine dependence; Z88.2 Allergy status to sulfonamides
CPT/HCPCS: 99284; 36415; 85025; 80048; 93971; A9270 ×2

== ENCOUNTER → 2020-08-23 | Outpatient (CLI) | payer MEDICARE, MEDICAID ==
--- NOTE | 2020-08-23 12:02 | WOMENS IMAGING REPORT ---
EXAM DESCRIPTION: BILAT SCREENING MAMMO W/CAD IMAGES COMPLETED DATE/TIME: 08/23/2020 11:20 am REASON FOR STUDY: ROUTINE BILATERAL SCREENING;Z12.31 Z12.31 ENCNTR SCREEN MAMMOGRAM FOR MALIGNANT N EOPLASM OF RONAK COMPARISON: Multiple since 2010 EXAM PARAMETERS: Standard craniocaudal and mediolateral oblique views of each breast recorded using digital acquisition. Read with the assistance of CAD. .[facility], [facility] - [facility] Hand Version 9.2 LIMITATIONS: None. FINDINGS: No suspicious masses, suspicious calcifications or architectural distortion. No areas of c oncern. IMPRESSION: NEGATIVE MAMMOGRAM. BIRADS 1 BREAST DENSITY: b. There are scattered areas of fibroglandular density. BIRAD: ASSESSMENT: 1 NEGATIVE RECOMMENDATION: ROUTINE SCREENING COMMENT: The patient has been notified of the results by letter per MQSA requirements. Additional no tification policies are in place for contacting patient with suspicious or incomplete findings. Quality ID #[id number]: [employer] [place] recommends an annual screening mammogram for women aged 40 years or over. This facility utilizes a reminder system to ensure that all patients receive reminder letters, and/or direct phone calls for appointments. This includes reminders for routine scr eening mammograms, diagnostic mammograms, or other Breast Imaging Interventions when appropriate. Th is patient will be placed in the appropriate reminder system. TECHNICAL DOCUMENTATION: FINDING NUMBER: (1) ASSESSMENT: (1) JOB ID: [id number] 2010 [employer]- All Rights Reserved Reading location - IP/workstation name: [email or web address]
== END ==
LOC: WI 11:36
PROVIDERS: ATTEND Obstetrics & Gynecology Gynecology
DX: Z12.31 Encounter for screening mammogram for malignant neoplasm of breast (principal)
CPT/HCPCS: 77067